=== PATIENT | female | born 1985 | race Caucasian/White ===

== ENCOUNTER → 2017-11-09 | Outpatient (CLI) | payer OTHER ==
[~2017-11-09] MED LIST: ALBU90I INH; ALBU90OI INH; ALBU90OI61 INH; AMIT25; AMOCLA500 PO; AMOCLA875 PO; AMOX500 PO; BUTASPCAF PO; CEPH500; CEPH500 PO; CIME400 PO; CIPR500 PO; DOCU100 PO; DOXY100 PO; EPIDRIN; ESCI5; FLUO20 PO; HYDACE5 PO; HYDMOR2 PO; IBUP200 PO; IBUP600 PO; IBUP800 PO; LIND1TL TOP; MEDR150I IM; MULVITMINE; NAPR220 PO; NAPR500 PO; NEOPOLHCSU OT; OMEP20ER; ONDA4ODT MM; OXYACE5T PO; OXYACE7.5T PO; PARO20; PARO20 PO; PRED20 PO; PROACE100 PO; PROM25 PO; Prednisone20 MG PO; Prilosec Otc20 MG PO; QUET100 PO; RXAMOX500 PO; RXCEPH500 PO; RXCLIN PO; RXNAPNA550 PO; RXNEOPOLHC AD; RXNEOPOLHC AU; RXOXYACE PO; RXPROACE PO; RXTRAM50 PO; SUCR1 PO; SULTRIDS PO; TRAACE PO; TRAM50 PO; Ultram50 MG PO; Ventolin/Prove6.7 GM
== END | disposition home or self-care (01) ==
LOC: LAB 14:40 → LAB FUT 10-25 14:10
DX: R14.0 Abdominal distension (gaseous) (principal); R10.13 Epigastric pain; R19.7 Diarrhea, unspecified
CPT/HCPCS: 87177; 87209

== ENCOUNTER 2017-11-19 10:16 | Day surgery (SDC) | payer OTHER ==
[~2017-11-19] VITALS: Ht 154.9 cm; Wt 131.5 kg
== END 2017-11-19 22:46 | disposition home or self-care (01) ==
LOC: ORSCMMR 10:16 → ORD 12:30 → ORSCMMR 22:46
PROVIDERS: Student in an Organized Health Care Education/Training Program
PROC: 0DB68ZX Excision of Stomach, Via Natural or Artificial Opening Endoscopic, Diagnostic (ICD-10-PCS; principal; 2017-11-19 12:30)
PROC: 0DBE8ZX Excision of Large Intestine, Via Natural or Artificial Opening Endoscopic, Diagnostic (ICD-10-PCS; principal; 2017-11-19 12:30)
PROC: 0DBB8ZX Excision of Ileum, Via Natural or Artificial Opening Endoscopic, Diagnostic (ICD-10-PCS; principal; 2017-11-19 12:30)
PROC: 0DB98ZX Excision of Duodenum, Via Natural or Artificial Opening Endoscopic, Diagnostic (ICD-10-PCS; principal; 2017-11-19 12:30)
DX: R19.7 Diarrhea, unspecified (principal); K57.30 Diverticulosis of large intestine without perforation or abscess without bleeding; K44.9 Diaphragmatic hernia without obstruction or gangrene; K31.89 Other diseases of stomach and duodenum; R14.0 Abdominal distension (gaseous); J45.909 Unspecified asthma, uncomplicated; Z87.891 Personal history of nicotine dependence; F41.8 Other specified anxiety disorders; F90.9 Attention-deficit hyperactivity disorder, unspecified type; F31.9 Bipolar disorder, unspecified; E66.9 Obesity, unspecified; Z68.43 Body mass index [BMI] 50.0-59.9, adult; Z79.899 Other long term (current) drug therapy
CPT/HCPCS: 88305; 88342; J2250; J7120

== ENCOUNTER → 2018-04-21 | Outpatient (CLI) | payer OTHER ==
[2018-04-25 14:07] LABS: HPV 16 Negative (Negative); HPV 18 Negative (Negative); HPV OTHER HR TYPES Negative (Negative)
== END ==
LOC: LAB 17:15 → LAB SHORT 17:15
PROVIDERS: Nurse Practitioner Family
DX: Z00.00 Encounter for general adult medical examination without abnormal findings (principal)
CPT/HCPCS: 87070; 87205; 87624; 88175